=== PATIENT | female | born 1945 | race Caucasian/White ===

== ENCOUNTER 2020-12-23 16:38 | Inpatient (IN) ==
[2020-12-24] MEDS ORDERED: Furosemide 20 MG TABLET PO PRN (23:12)
[2020-12-25] MEDS: *HR* Enoxaparin 40 MG/0.4 ML SYRINGE SQ SCH (06:05)
[2020-12-25] MEDS: *HR* OxyCODONE/APAP 5/325 TABLET PO PRN ×3 (06:51→22:21)
[2020-12-25 07:35] LABS: Basophils % 0.3 %; Eosinophils # 0.3 K/mcL (0.0-0.6); Eosinophils % 4.8 %; Hematocrit 23.7 % (35.3-44.9); Hemoglobin 7.8 g/dL (11.5-15.4); Immature Granulocytes % 0.5 % (0-4); Lymphocytes # 0.8 K/mcL (0.6-4.6); Lymphocytes % 13.3 %; Mean Corpuscular HGB Conc 32.9 g/dL (31.6-35.5); Mean Corpuscular Hemoglobin 29.3 pg (28.0-33.3); Mean Corpuscular Volume 89.1 fL (83.0-100.0); Mean Platelet Volume 10.5 fL (9.4-12.4); Monocytes # 0.5 K/mcL (0.0-1.3); Monocytes % 8.5 %; Neutrophils # 4.2 K/mcL (1.6-8.9); Platelet Count 124 K/mcL (140-400); Red Blood Count 2.66 M/mcL (3.82-4.97); Red Cell Distribution Width 15.9 % (11.5-14.5); Segmented Neutrophils % 72.6 %; White Blood Count 5.9 K/mcL (4.3-11.1)
[2020-12-25 07:41] LABS: BUN/Creatinine Ratio 23 (6-26); Blood Urea Nitrogen 15 mg/dL (8-23); Calcium 7.8 mg/dL (8.6-10.3); Carbon Dioxide 28 mEq/L (23-29); Chloride 105 mEq/L (98-107); Glucose 95 mg/dL (70-105); Osmolality,Calculated 289 (280-300); Potassium 3.4 mEq/L (3.5-5.1); Sodium 139 mEq/L (136-145); eGFR For African Americans > 60 (> 60); eGFR For Non-African Americans > 60 (> 60)
[2020-12-25] MEDS: carvediloL 6.25 MG TABLET PO SCH ×2 (08:04→16:08)
[2020-12-25] MEDS: Aspirin Enteric Coated 81 MG Tablet PO SCH (08:04)
[2020-12-25] MEDS: Cyanocobalamin (B-12) 1,000 MCG TABLET PO SCH (08:05)
[2020-12-25] MEDS: Nitrofurantoin (BID) 100 MG CAPSULE PO SCH ×2 (08:05→22:21)
[2020-12-25] MEDS ORDERED: Aspirin Enteric Coated 325 MG Tablet PO SCH (09:00)
[2020-12-25] MEDS ORDERED: Ondansetron ODT 4 MG TAB.RAPDIS SL PRN (10:21)
[2020-12-26 04:55] LABS: Basophils % 0.3 %; Eosinophils # 0.3 K/mcL (0.0-0.6); Eosinophils % 3.5 %; Hematocrit 25.4 % (35.3-44.9); Hemoglobin 8.3 g/dL (11.5-15.4); Immature Granulocytes % 0.9 % (0-4); Lymphocytes # 1.2 K/mcL (0.6-4.6); Lymphocytes % 16.6 %; Mean Corpuscular HGB Conc 32.7 g/dL (31.6-35.5); Mean Corpuscular Hemoglobin 29.6 pg (28.0-33.3); Mean Corpuscular Volume 90.7 fL (83.0-100.0); Mean Platelet Volume 10.3 fL (9.4-12.4); Monocytes # 0.6 K/mcL (0.0-1.3); Monocytes % 8.1 %; Platelet Count 145 K/mcL (140-400); Red Cell Distribution Width 16.3 % (11.5-14.5); Segmented Neutrophils % 70.6 %; White Blood Count 7.1 K/mcL (4.3-11.1)
[2020-12-26 05:10] LABS: BUN/Creatinine Ratio 22 (6-26); Blood Urea Nitrogen 15 mg/dL (8-23); Calcium 8.2 mg/dL (8.6-10.3); Carbon Dioxide 31 mEq/L (23-29); Chloride 103 mEq/L (98-107); Glucose 82 mg/dL (70-105); Osmolality,Calculated 286 (280-300); Potassium 4.1 mEq/L (3.5-5.1); Sodium 138 mEq/L (136-145); eGFR For African Americans > 60 (> 60); eGFR For Non-African Americans > 60 (> 60)
[2020-12-26] MEDS: *HR* OxyCODONE/APAP 5/325 TABLET PO PRN ×3 (05:19→22:14)
[2020-12-26] MEDS: *HR* Enoxaparin 40 MG/0.4 ML SYRINGE SQ SCH (05:20)
[2020-12-26] MEDS: Aspirin Enteric Coated 81 MG Tablet PO SCH (08:05)
[2020-12-26] MEDS: Cyanocobalamin (B-12) 1,000 MCG TABLET PO SCH (08:05)
[2020-12-26] MEDS: Nitrofurantoin (BID) 100 MG CAPSULE PO SCH ×2 (08:05→22:14)
[2020-12-26] MEDS: carvediloL 6.25 MG TABLET PO SCH ×2 (08:06→16:22)
[2020-12-26] MEDS: polyethylene glycoL 3350 17 GM POWD.PACK PO SCH (18:37)
[2020-12-27] MEDS: *HR* Enoxaparin 40 MG/0.4 ML SYRINGE SQ SCH (05:28)
[2020-12-27] MEDS: *HR* OxyCODONE/APAP 5/325 TABLET PO PRN ×3 (05:28→14:51)
[2020-12-27] MEDS: polyethylene glycoL 3350 17 GM POWD.PACK PO SCH (09:15)
[2020-12-27] MEDS: Cyanocobalamin (B-12) 1,000 MCG TABLET PO SCH (09:16)
[2020-12-27] MEDS: Nitrofurantoin (BID) 100 MG CAPSULE PO SCH ×2 (09:16→21:14)
[2020-12-27] MEDS: carvediloL 6.25 MG TABLET PO SCH ×2 (09:16→17:31)
[2020-12-27] MEDS: Aspirin Enteric Coated 81 MG Tablet PO SCH (09:17)
[2020-12-28] MEDS: *HR* Enoxaparin 40 MG/0.4 ML SYRINGE SQ SCH (04:43)
[2020-12-28] MEDS: Aspirin Enteric Coated 81 MG Tablet PO SCH (08:02)
[2020-12-28] MEDS: Cyanocobalamin (B-12) 1,000 MCG TABLET PO SCH (08:02)
[2020-12-28] MEDS: polyethylene glycoL 3350 17 GM POWD.PACK PO SCH (08:03)
[2020-12-28] MEDS: *HR* OxyCODONE/APAP 5/325 TABLET PO PRN ×2 (08:14→18:33)
[2020-12-28] MEDS: carvediloL 6.25 MG TABLET PO SCH ×2 (08:15→20:27)
[2020-12-28] MEDS ORDERED: Barium Sulfate 1 TAB TABLET PO ONE (12:06)
[2020-12-28] MEDS ORDERED: E-Z-HD (BARIUM SULF) SUSPENSION PO ONE (12:06)
[2020-12-28] MEDS ORDERED: E-Z-PAQUE (BARIUM SULF) SUSP 1 BOTTLE PO ONE (12:06)
[2020-12-29] MEDS: *HR* Enoxaparin 40 MG/0.4 ML SYRINGE SQ SCH (04:38)
[2020-12-29] MEDS: *HR* OxyCODONE/APAP 5/325 TABLET PO PRN ×2 (04:41→08:58)
[2020-12-29] MEDS: carvediloL 6.25 MG TABLET PO SCH ×2 (08:58→16:37)
[2020-12-29] MEDS: Cyanocobalamin (B-12) 1,000 MCG TABLET PO SCH (08:58)
[2020-12-29] MEDS: Aspirin Enteric Coated 81 MG Tablet PO SCH (08:58)
[2020-12-29] MEDS: polyethylene glycoL 3350 17 GM POWD.PACK PO SCH (09:00)
[2020-12-29] MEDS ORDERED: Sennosides/Docusate Sodium TABLET PO PRN (11:00)
[2020-12-29] MEDS: methocarbamoL 750 MG TABLET PO SCH ×3 (13:12→22:12)
[2020-12-29] MEDS: *HR* OxyCODONE Immed Rel 5 MG TABLET PO PRN (21:47)
[2020-12-30] MEDS: *HR* Enoxaparin 40 MG/0.4 ML SYRINGE SQ SCH (04:38)
[2020-12-30] MEDS: polyethylene glycoL 3350 17 GM POWD.PACK PO SCH (07:56)
[2020-12-30] MEDS: Cyanocobalamin (B-12) 1,000 MCG TABLET PO SCH (07:57)
[2020-12-30] MEDS: carvediloL 6.25 MG TABLET PO SCH ×2 (07:58→17:56)
[2020-12-30] MEDS: methocarbamoL 750 MG TABLET PO SCH ×4 (07:58→19:58)
[2020-12-30] MEDS: Aspirin Enteric Coated 81 MG Tablet PO SCH (07:58)
[2020-12-31] MEDS: *HR* Enoxaparin 40 MG/0.4 ML SYRINGE SQ SCH (05:26)
[2020-12-31] MEDS: *HR* OxyCODONE Immed Rel 5 MG TABLET PO PRN (08:11)
[2020-12-31] MEDS: carvediloL 6.25 MG TABLET PO SCH ×2 (08:11→16:21)
[2020-12-31] MEDS: Cyanocobalamin (B-12) 1,000 MCG TABLET PO SCH (08:11)
[2020-12-31] MEDS: polyethylene glycoL 3350 17 GM POWD.PACK PO SCH (08:12)
[2020-12-31] MEDS: Aspirin Enteric Coated 81 MG Tablet PO SCH (08:12)
[2020-12-31] MEDS: methocarbamoL 750 MG TABLET PO SCH ×4 (10:16→19:53)
[2021-01-01] MEDS: *HR* Enoxaparin 40 MG/0.4 ML SYRINGE SQ SCH (05:34)
[2021-01-01 07:53] LABS: Hematocrit 29.7 % (35.3-44.9); Hemoglobin 9.1 g/dL (11.5-15.4); Mean Corpuscular HGB Conc 30.6 g/dL (31.6-35.5); Mean Corpuscular Hemoglobin 29.8 pg (28.0-33.3); Mean Corpuscular Volume 97.4 fL (83.0-100.0); Mean Platelet Volume 9.2 fL (9.4-12.4); Platelet Count 220 K/mcL (140-400); Red Blood Count 3.05 M/mcL (3.82-4.97); Red Cell Distribution Width 17.9 % (11.5-14.5); White Blood Count 6.1 K/mcL (4.3-11.1)
[2021-01-01] MEDS: Aspirin Enteric Coated 81 MG Tablet PO SCH (10:01)
[2021-01-01] MEDS: Cyanocobalamin (B-12) 1,000 MCG TABLET PO SCH (10:01)
[2021-01-01] MEDS: methocarbamoL 750 MG TABLET PO SCH ×4 (10:01→21:01)
[2021-01-01] MEDS: polyethylene glycoL 3350 17 GM POWD.PACK PO SCH (10:01)
[2021-01-01] MEDS: carvediloL 6.25 MG TABLET PO SCH ×2 (10:01→16:20)
[2021-01-01 11:46] LABS: % Iron Saturation 24 % (15-50); Alanine Aminotransferase 10 Units/L (7-52); Albumin/Globulin Ratio 1.4 (1.1-2.2); Alkaline Phosphatase 153 Units/L (34-104); Aspartate Amino Transferase 18 Units/L (13-39); BUN/Creatinine Ratio 21 (6-26); Bilirubin,Total 0.6 mg/dL (0.3-1.0); Blood Urea Nitrogen 18 mg/dL (8-23); Calcium 8.3 mg/dL (8.6-10.3); Carbon Dioxide 29 mEq/L (23-29); Chloride 105 mEq/L (98-107); Globulin 2.2 g/dL (2.4-3.5); Glucose 86 mg/dL (70-105); Iron 68 mcg/dL (50-170); Magnesium 2.3 mg/dL (1.6-2.6); Osmolality,Calculated 287 (280-300); Potassium 4.2 mEq/L (3.5-5.1); Sodium 138 mEq/L (136-145); Total Protein 5.2 g/dL (6.4-8.9); Transferrin 201 mg/dL (203-362); eGFR For African Americans > 60 (> 60); eGFR For Non-African Americans > 60 (> 60)
[2021-01-01 12:11] LABS: Folate 14.8 ng/mL (3.0-16.0)
[2021-01-02] MEDS: *HR* OxyCODONE Immed Rel 5 MG TABLET PO PRN (05:07)
[2021-01-02] MEDS: *HR* Enoxaparin 40 MG/0.4 ML SYRINGE SQ SCH (05:08)
[2021-01-02] MEDS: carvediloL 6.25 MG TABLET PO SCH ×2 (09:03→17:50)
[2021-01-02] MEDS: methocarbamoL 750 MG TABLET PO SCH ×5 (09:03→21:49)
[2021-01-02] MEDS: Aspirin Enteric Coated 81 MG Tablet PO SCH (09:04)
[2021-01-02] MEDS: polyethylene glycoL 3350 17 GM POWD.PACK PO SCH (09:04)
[2021-01-02] MEDS: Cyanocobalamin (B-12) 1,000 MCG TABLET PO SCH (09:08)
[2021-01-03] MEDS: *HR* Enoxaparin 40 MG/0.4 ML SYRINGE SQ SCH (05:06)
[2021-01-03] MEDS: *HR* OxyCODONE Immed Rel 5 MG TABLET PO PRN (10:21)
[2021-01-03] MEDS: methocarbamoL 750 MG TABLET PO SCH ×4 (10:22→20:05)
[2021-01-03] MEDS: polyethylene glycoL 3350 17 GM POWD.PACK PO SCH (10:22)
[2021-01-03] MEDS: carvediloL 6.25 MG TABLET PO SCH ×2 (10:22→17:18)
[2021-01-03] MEDS: Aspirin Enteric Coated 81 MG Tablet PO SCH (10:22)
[2021-01-03] MEDS: Cyanocobalamin (B-12) 1,000 MCG TABLET PO SCH (10:23)
[2021-01-04] MEDS: *HR* Enoxaparin 40 MG/0.4 ML SYRINGE SQ SCH (05:52)
[2021-01-04] MEDS: carvediloL 6.25 MG TABLET PO SCH ×2 (08:18→16:23)
[2021-01-04] MEDS: Cyanocobalamin (B-12) 1,000 MCG TABLET PO SCH (08:20)
[2021-01-04] MEDS: Aspirin Enteric Coated 81 MG Tablet PO SCH (08:20)
[2021-01-04] MEDS: *HR* OxyCODONE Immed Rel 5 MG TABLET PO PRN (08:20)
[2021-01-04] MEDS: polyethylene glycoL 3350 17 GM POWD.PACK PO SCH (08:20)
[2021-01-04] MEDS: methocarbamoL 750 MG TABLET PO SCH ×4 (08:20→20:28)
[2021-01-05] MEDS: *HR* Enoxaparin 40 MG/0.4 ML SYRINGE SQ SCH ×2 (05:26→05:33)
[2021-01-05] MEDS: Aspirin Enteric Coated 81 MG Tablet PO SCH (07:45)
[2021-01-05] MEDS: methocarbamoL 750 MG TABLET PO SCH ×4 (07:45→21:07)
[2021-01-05] MEDS: Cyanocobalamin (B-12) 1,000 MCG TABLET PO SCH (07:45)
[2021-01-05] MEDS: polyethylene glycoL 3350 17 GM POWD.PACK PO SCH (07:46)
[2021-01-05] MEDS: carvediloL 6.25 MG TABLET PO SCH ×2 (07:46→17:12)
[2021-01-06 06:05] LABS: Basophils % 0.6 %; Eosinophils # 0.2 K/mcL (0.0-0.6); Eosinophils % 3.7 %; Hematocrit 28.5 % (35.3-44.9); Hemoglobin 9.1 g/dL (11.5-15.4); Immature Granulocytes % 0.4 % (0-4); Lymphocytes # 1.1 K/mcL (0.6-4.6); Lymphocytes % 22.3 %; Mean Corpuscular HGB Conc 31.9 g/dL (31.6-35.5); Mean Corpuscular Hemoglobin 30.6 pg (28.0-33.3); Mean Platelet Volume 9.5 fL (9.4-12.4); Monocytes # 0.4 K/mcL (0.0-1.3); Neutrophils # 3.3 K/mcL (1.6-8.9); Platelet Count 196 K/mcL (140-400); Red Blood Count 2.97 M/mcL (3.82-4.97); Red Cell Distribution Width 17.9 % (11.5-14.5); White Blood Count 5.1 K/mcL (4.3-11.1)
[2021-01-06 06:39] LABS: BUN/Creatinine Ratio 31 (6-26); Blood Urea Nitrogen 21 mg/dL (8-23); Carbon Dioxide 27 mEq/L (23-29); Chloride 105 mEq/L (98-107); Glucose 83 mg/dL (70-105); Osmolality,Calculated 288 (280-300); Potassium 3.7 mEq/L (3.5-5.1); Sodium 138 mEq/L (136-145); eGFR For African Americans > 60 (> 60); eGFR For Non-African Americans > 60 (> 60)
[2021-01-06 07:35] VITALS: BP 128/70; PULSE 67; RESP 16; TEMP 98; O2SAT 97
[2021-01-06] MEDS: Cyanocobalamin (B-12) 1,000 MCG TABLET PO SCH (08:32)
[2021-01-06] MEDS: methocarbamoL 750 MG TABLET PO SCH (08:32)
[2021-01-06] MEDS: Aspirin Enteric Coated 81 MG Tablet PO SCH (08:32)
[2021-01-06] MEDS: carvediloL 6.25 MG TABLET PO SCH (08:32)
[2021-01-06] MEDS: polyethylene glycoL 3350 17 GM POWD.PACK PO SCH (08:34)
== END 2021-01-06 13:42 | disposition home health service (06) | DRG 560 ==
LOC: INPGRE 12-24 19:26
PROVIDERS: ADMIT Family Medicine; ATTEND Family Medicine